=== PATIENT | female | born 1960 | race African-American/Black ===

== ENCOUNTER 2020-04-16 14:52 | Emergency (ER) | payer OTHER ==
[~2020-04-16] VITALS: Ht 188 cm; Wt 99.8 kg
--- NOTE | 2020-04-16 15:14 | NUR ---
ED Nurse Note: Pt has L knee pain 7/10 and swelling for 3 weeks. Pt is alert and orientedx4, uses walker. Pt had knee surgery in 2016. She is alert and orientedx4, amb with walker. Pt has been seen by [facility].
--- NOTE | 2020-04-16 15:16 | Emergency Room Report ---
History of Present Illness General Chief Complaint: Pain Source: Patient Present Illness HPI Disclaimer: Please note that this report is being documented using DRAGON technology. This can lead to erroneous entry secondary to incorrect interpretation by the dictating instrument. HPI: 59-year-old female presents for evaluation of left knee pain. Symptoms present over the past 3 days. History of bilateral knee replacements with revision of the left knee May 2019. She is visiting from [place] and her orthopedic surgeon there has not seen her in some time. Denies fall or bending injury. Has been doing a lot of walking with her walker. Patient notes swellin g and tenderness over the patella. Denies instability in the knee. Denies numbness or tingling or weakness in the left leg. PMH: Bilateral knee replacements PSH: Reviewed Allergies: Reviewed Social Hx: Reviewed Allergies: Coded Allergies: No Known Allergies (Unverified , 04/16/20) COVID-19 Screening Contact w/high risk pt: No Experienced COVID-19 symptoms?: No COVID-19 Testing performed [employer]: Yes COVID-19 Screening: Negative COVID-19 COVID-19 Testing Source: nasal Nursing Documentation-PMH Past Medical History: No History, Except For Hx Hypertension: Yes Review of Systems All Other Systems: negative except mentioned in HPI Physical Exam Vital Signs Date Time Temp Pulse Resp B/P (MAP) Pulse Ox O2 Delivery O2 Flow Rate FiO2 04/16/20 14:57 98.1 70 17 122/82 (95) 98 Room Air General: Awake and alert, no acute distress HEENT: NC/AT. EOMI. Resp: Normal work of breathing Skin: Intact. No abrasions, laceration or rash over the exposed skin MSK: Normal tone and bulk. Moving all extremities. No obvious deformity. Surgical scars over the patellas bilaterally are clean dry and intact and well- healed. Patellas are in anatomic position. No significant effusion noted on either knee. No warmth. No skin breakdown. Patient able to flex and extend both knees. No lateral instability. Able to bear weight and ambulate with walker. Neuro: Awake and alert. Mentating appropriately Medical Decision Making Diagnostic Impression: Primary Impression: Knee pain ER Course 59-year-old female history of bilateral knee replacements presents for several days atraumatic knee pain and subjective swelling. No obvious fracture or hardware displacement on x-ray. Small effusion noted. The patient states she has had a complicated course with her left knee developing postop infection requiring washout. She has no clinical symptoms of infection however I did recommend we do an arthrocentesis to fully eliminate the possibility of septic joint. The patient declined at this time stating that she would return for the procedure should she develop any warmth, worsening pain, worsening swelling, fever or other changes in her health. She was placed in Eyal bandage and discharged with NSAIDs and breakthrough pain medication. Strongly encouraged her to return should she change her mind regarding arthrocentesis. She understands agrees with treatment plan will be discharged home. Other X-Ray Diagnostic Results Other X-Ray Diagnostic Results : X-Ray ordered: Left knee # of Views/Limited Vs Complete: Limited Indication: Pain EP Interpretation: Yes PA Xray: Interpretation reviewed Interpretation: no dislocation, no soft tissue swelling, no fractures, other - Small effusion, hardware in place Impression: Other - Hardware in place. No fracture. Small effusion. Electronically Signed by: Electronically signed by Dr. Duarte Duff MD Last Vital Signs Date Time Temp Pulse Resp B/P (MAP) Pulse Ox O2 Delivery O2 Flow Rate FiO2 04/16/20 14:57 98.1 70 17 122/82 (95) 98 Room Air Disposition: HOME, SELF-CARE Condition: Stable Scripts Acetaminophen With Codeine (T#3) (TYLENOL #3 TAB*) Y Tab 1 TAB ORAL Q8H PRN for For Pain, #10 TAB Prov: Duarte Duff MD 04/16/20 Ibuprofen* (MOTRIN*) 600 Mg Tablet 600 MG ORAL Q6H PRN for For Pain, #30 TAB 0 Refills Prov: Duarte Duff MD 04/16/20 Duarte Duff MD Apr 16, 2020 15:16
[2020-04-16 15:17] VITALS: BP 125/80
[2020-04-16] MEDS ORDERED: IBUPROFEN600 M1 ORAL (16:35)
[2020-04-16] MEDS ORDERED: ACETAMINOPHEN-1 EAC1 ORAL (16:35)
--- NOTE | 2020-04-16 16:37 | Diagnostic Imaging Report ---
Indication: Left knee pain Technique: 3 views of the left knee Comparison: None Findings: There is a small suprapatellar effusion. Patient is status post total knee articulating arthroplasty. Prosthesis appears well situated, no worrisome periprosthetic lucency. No acute fracture. No dislocation Impression: Small joint effusion Intact prosthesis Negative for fracture
--- NOTE | 2020-04-16 16:43 | NUR ---
ER DISCHARGE NOTE: Patient is cleared to be discharged per ERMD, pt is aox4, on room air, with stable vital signs. pt was given dc and prescription instructions, pt was able to verbalize understanding, pt id band removed. pt is able to ambulate with steady gait. pt took all belongings. VONDA bandage applied to L knee. Pt education regarding knee effusion.
[2020-04-16 16:44] VITALS: BP 122/78
== END 2020-04-16 16:46 | disposition home or self-care (01) ==
LOC: EMR 15:30
DX: M25.562 Pain in left knee (principal); Z96.653 Presence of artificial knee joint, bilateral; I10 Essential (primary) hypertension
CPT/HCPCS: 99283